=== PATIENT | male | born 1990 | race Caucasian/White ===

== ENCOUNTER 2017-06-19 01:41 | Inpatient (IN) | payer OTHER ==
--- NOTE | 2017-06-19 02:05 | HP ---
COWS - Scale Resting Pulse: 0= [place] 80 or Below Sweatin=Flushed/Facial Moisture Restless Observation: 5= Unable to Sit Still Pupil Size: 1= Pupils >than Normal Bone or Joint Aches: 4=Acute Joint/Muscle Pain Runny Nose/ Eye Tearin= Nasal Congestion GI Upset > 30mins: 0= None Tremor Observation: 2= Slight Tremor Visible Yawning Observation: 0= None Anxiety or Irritability: 2=Irritable/Anxious Goose Flesh Skin: 0=Smooth Skin COWS Score: 17 CIWA Score - CIWA Score Nausea/Vomitin Muscle Tremors: 3 Anxiety: 3 Agitation: 3 Paroxysmal Sweats: 1-Minimal Palms Moist Orientation: 0-Oriented Tacttile Disturbances: 0-None Auditory Disturbances: 0-None Visual Disturbances: 0-None Headache: 0-None Present CIWA-Ar Total Score: 13 Admission ROS S - HPI Chief Complaint: SEEKING DETOX FOR WITHDRAWAL SX'S FROM POLYSUBSTANCE ABUSE. Allergies/Adverse Reactions: Allergies Allergy/AdvReac Type Severity Reaction Status Date / Time No Known Allergies Allergy Verified 06/19/17 02:04 History of Present Illness: 26 Y.O. MALE WITH SEVEN YEAR H/O OF POLYSUBSTANCE DEPENDENCE ADMITTED TO DETOX FOR ALCOHOLISM, HEROIN, XANAX, DEPENDENCE. CLIENT REPORTS THIS BEING HIS FIRST TIME IN [facility]. REFERRED BY A [facility] RECOVERY OUTREACH PERSONNEL. DENIES ANY SIGNIFICANT PERIOD OF CLEAN TIME Exam Limitations: No Limitations - Ebola screening Have you traveled outside of the country in the last 21 days: No Have you had contact with anyone from an Ebola affected area: No Have you been sick,other than usual withdrawal symptoms: No - Review of Systems Constitutional: Chills, Loss of Appetite, Malaise, Night Sweats, Changes in sleep EENT: reports: Nose Congestion Respiratory: reports: No Symptoms reported Cardiac: reports: No Symptoms Reported GI: reports: Poor Appetite, Abdominal cramping : reports: No Symptoms Reported Musculoskeletal: reports: Back Pain Integumentary: reports: No Symptoms Reported Neuro: reports: No Symptoms reported Endocrine: reports: No Symptoms Reported Hematology: reports: No Symptoms Reported Psychiatric: reports: Anxious, Depressed Other Systems: Reviewed and Negative Patient History - Patient Medical History Hx Anemia: No Hx Asthma: No Hx Chronic Obstructive Pulmonary Disease (COPD): No Hx Cancer: No Hx Cardiac Disorders: No Hx Congestive Heart Failure: No Hx Hypertension: No Hx Hypercholesterolemia: No Hx Pacemaker: No HX Cerebrovascular Accident: No Hx Seizures: No Hx Dementia: No Hx Diabetes: No Hx Gastrointestinal Disorders: No Hx Liver Disease: No Hx Genitourinary Disorders: No Hx Sexually Transmitted Disorders: Yes (GONRRHEA, HPV TX'ED) Hx Renal Disease (ESRD): No Hx Thyroid Disease: No Hx Human Immunodeficiency Virus (HIV): No Hx Hepatitis C: No Hx Depression: Yes (NO TXMENT) Hx Suicide Attempt: No Hx Bipolar Disorder: No Hx Schizophrenia: No Other Medical History: ANXIETY - Patient Surgical History Past Surgical History: No - PPD History Previous Implant?: Yes Documented Results: Negative w/o proof Implanted On Prior [facility] Admission?: No PPD to be Administered?: Yes - Smoking Cessation Smoking history: Current every day smoker Have you smoked in the past 12 months: Yes Aproximately how many cigarettes per day: 10 Cigars Per Day: 0 Hx Chewing Tobacco Use: No Initiated information on smoking cessation: Yes 'Breaking Loose' booklet given: 06/19/17 - Substance & Tx. History Hx Alcohol Use: Yes Hx Substance Use: Yes Substance Use Type: Alcohol, Cocaine, Heroin, Marijuana, Opiates (OXY), Tranquilizers (XANAX) Hx Substance Use Treatment: No - Substances Abused HEROIN Route: Inhalation Frequency: Daily Amount used: 3 BAGS Age of first use: 19 Date of Last Use: 06/18/17 BEER Route: Oral Frequency: 3-6 times per week Amount used: 1-18 OZ Age of first use: 17 Date of Last Use: 06/17/17 XANAX Route: Oral Frequency: 1-3 times last 30 days Amount used: 6MG Age of first use: 21 Date of Last Use: 06/18/17 COCAINE Route: Inhalation Frequency: 3-6 times per week Amount used: $40 Age of first use: 23 Date of Last Use: 06/16/17 THC Route: Smoking Frequency: Daily Amount used: 1 GM Age of first use: 13 Date of Last Use: 06/18/17 PERCOCET Route: Oral Frequency: 1-3 times last 30 days Amount used: 30MG Age of first use: 19 Date of Last Use: 06/08/17 Family Disease History - Family Disease History Family History: Denies Admission Physical Exam [facility] - Physical General Appearance: Yes: Appropriately Dressed, Tremorous, Anxious HEENTM: Yes: EOMI, Normocephalic, Pharynx Normal, Nasal Congestion Respiratory: Yes: Chest Non-Tender, Lungs Clear, Normal Breath Sounds, No Respiratory Distress, No Accessory Muscle Use Neck: Yes: No masses,lesions,Nodules, Supple, Trachea in good position Breast: Yes: Breast Exam Deferred Cardiology: Yes: Regular Rhythm, Regular Rate, S1, S2 Abdominal: Yes: Normal Bowel Sounds, Non Tender, Soft Genitourinary: Yes: Within Normal Limits Back: Yes: Normal Inspection Musculoskeletal: Yes: full range of Motion, Gait Steady Extremities: Yes: Normal Range of Motion, Non-Tender, Tremors Neurological: Yes: Fully Oriented, Alert, Motor Strength 5/5 Integumentary: Yes: Warm, Other (NEEDLE STICK NOTED TO L AC) Lymphatic: Yes: Within Normal Limits - Diagnostic (1) Cannabis dependence, uncomplicated Current Visit: Yes Status: Chronic (2) Cocaine dependence, uncomplicated Current Visit: Yes Status: Chronic (3) Sedative, hypnotic or anxiolytic dependence with withdrawal, uncomplicated Current Visit: Yes Status: Chronic (4) Opioid dependence with withdrawal Current Visit: Yes Status: Chronic (5) Alcohol dependence with uncomplicated withdrawal Current Visit: Yes Status: Chronic (6) Nicotine dependence Current Visit: Yes Status: Chronic Qualifiers: Nicotine product type: cigarettes Substance use status: uncomplicated Qualified Code(s): F17.210 - Nicotine dependence, cigarettes, uncomplicated; F17.210 - Nicotine dependence, cigarettes, uncomplicated Cleared for Admission [facility] - Detox or Rehab [facility] Level of Care: Medically Managed Detox Regimen/Protocol: Methadone/Valium [facility] Breath Alcohol Content Breath Alcohol Content: 0 Vital Signs - Vital Signs Vital Signs Refused: No Temperature: 97.6 F Temperature Source: Oral Pulse Rate: 69 Respiratory Rate: 20 Blood Pressure: 125/69 BP Location: Left Arm Blood Pressure Position: Sitting - Height Height: 5 ft 4 in - Weight Weight: 70.76 kg Weight Measurement Method: Standing Scale Body Mass Index (BMI): 26.7 Urine Drug Screen - Test Device Lot Number: [id number] Expiration Date: 02/14/19 - Control Is Test Valid: Yes - Results Drug Screen Negative: No Urine Drug Screen Results: THC-Marijuana, COLE-Cocaine, OPI-Opiates, BZO- Benzodiazepines, OXY-Oxycodone
[2017-06-19 02:59] VITALS: BMI 26.7
[2017-06-19] MEDS ORDERED: METHADONE HCL 10 MG TABLET (FOR DETOX USE ONLY) PO ONE ×3 (03:03→23:00)
[2017-06-19] MEDS ORDERED: LOPERAMIDE HCL 2 MG CAPSULE PO PRN (03:03)
[2017-06-19] MEDS ORDERED: ACETAMINOPHEN 325 MG TABLET (FP) PO PRN (03:03)
[2017-06-19] MEDS ORDERED: MENTHOL/PHENOL 1 EACH UD MM PRN (03:03)
[2017-06-19] MEDS ORDERED: diazePAM 5 MG TABLET PO ONE (03:03)
[2017-06-19] MEDS ORDERED: NICOTINE POLACRILEX 2 MG GUM BC PRN (03:03)
[2017-06-19] MEDS ORDERED: MAGNESIUM CITRATE 300 ML BOTTLE PO PRN (03:03)
[2017-06-19] MEDS ORDERED: MAGNESIUM HYDROX 2400MG/30ML ORAL SUSPENSION 30 ML CUP PO PRN (03:03)
[2017-06-19] MEDS ORDERED: P-EPHED 60MG/TRIPROLIDI 2.5MG TABLET PO PRN (03:03)
[2017-06-19] MEDS ORDERED: MAG HYDROX/AL HYDROX/SIMETH 30 ML UNIT-DOSE CUP PO PRN (03:03)
[2017-06-19] MEDS ORDERED: guaiFENesin/D-METHORPHAN HB 10 ML UNIT-DOSE CUPS PO PRN (03:03)
[2017-06-19] MEDS: diazePAM 5 MG TABLET PO SCH ×3 (07:43→22:50)
[2017-06-19] MEDS: diazePAM 5 MG TABLET PO PRN ×2 (09:15→18:03)
[2017-06-19 09:48] LABS: MCH 27.6 pg (25.7-33.7); MCHC 33.5 g/dl (32.0-35.9); MEAN CELL VOLUME 82.4 fl (80-96); MEAN PLT VOLUME 9.7 fl (7.5-11.1); PLATELET COUNT 140 K/MM3 (134-434); RDW 14.5 % (11.9-15.9); WHITE BLOOD COUNT 7.8 K/mm3 (4.0-10.0)
[2017-06-19 09:50] LABS: ALBUMIN 3.5 g/dl (3.4-5.0)
[2017-06-19 09:54] LABS: ALK PHOS 86 U/L (45-117); ANION GAP 5 (8-16); BILIRUBIN,TOTAL 0.6 mg/dL (0.2-1.0); CALCIUM 8.8 mg/dL (8.5-10.1); CO2 33 mmol/L (21-32); CREATININE 0.9 mg/dL (0.7-1.3); GLUCOSE,RANDOM 86 mg/dL (74-106); SGOT/AST 15 U/L (15-37); SGPT/ALT 19 U/L (12-78); TOT PROT 6.5 g/dl (6.4-8.2)
[2017-06-19] MEDS: NICOTINE 14 MG/24 HOURS TOPICAL PATCH TD SCH (10:46)
[2017-06-19] MEDS: PRENATAL VITAMINS W/ FOLIC ACID TABLET (FP) PO SCH (10:47)
--- NOTE | 2017-06-19 12:25 | PN ---
[facility] CIWA - CIWA Score Nausea/Vomitin-No Nausea/No Vomiting Muscle Tremors: 2 Anxiety: 4-Mod. Anxious/Guarded Agitation: 2 Paroxysmal Sweats: 3 Orientation: 0-Oriented Tacttile Disturbances: 3-Moderate Itch/Numb/Burn Auditory Disturbances: 2-Mild Harshness/Frighten Visual Disturbances: 0-None Headache: 0-None Present CIWA-Ar Total Score: 16 [facility] COWS - Scale Resting Pulse: 0= [place] 80 or Below Sweatin= Chills/Flushing Restless Observation: 1= Difficult to Sit Still Pupil Size: 0= Normal to Room Light Bone or Joint Aches: 2= Severe Diffuse Aches Runny Nose/ Eye Tearin= Nasal Congestion GI Upset > 30mins: 1= Stomach Cramp Tremor Observation of Outstretched Hands: 2= Slight Tremor Visible Yawning Observation: 1= 1-2x During Session Anxiety or Irritability: 2=Irritable/Anxious Goose Flesh Skin: 3=Piloerection COWS Score: 14 S Progress Note (SOAP) Subjective: Fatigue, Sweating, Body Aches. Objective: PT. A & O X 3. NO ACUTE DISTRESS. 06/19/17 12:26 Vital Signs Temperature 97.1 F L 06/19/17 09:25 Pulse Rate 58 L 06/19/17 09:25 Respiratory Rate 18 06/19/17 09:25 Blood Pressure 109/72 06/19/17 09:25 O2 Sat by Pulse Oximetry (%) Laboratory Tests 06/19/17 06/19/17 06/19/17 08:00 08:00 08:00 WBC 7.8 RBC 4.86 Hgb 13.4 Hct 40.1 MCV 82.4 MCH 27.6 MCHC 33.5 RDW 14.5 Plt Count 140 MPV 9.7 Sodium 140 Potassium 4.2 Chloride 102 Carbon Dioxide 33 H Anion Gap 5 L BUN 16 Creatinine 0.9 Creat Clearance w eGFR > 60 Random Glucose 86 Calcium 8.8 Total Bilirubin 0.6 AST 15 ALT 19 Alkaline Phosphatase 86 Total Protein 6.5 Albumin 3.5 RPR Titer Nonreactive LABS NOTED. HCV AB, UA RESULTS PENDING. 06/19/17 12:27 Assessment: 06/19/17 12:27 WITHDRAWAL SYMPTOMS. Plan: CONTINUE DETOX. INCREASE DAILY PO FLUID INTAKE.
[2017-06-19 17:05] LABS: URINE APPEARANCE CLEAR; URINE BILIRUBIN NEGATIVE (NEGATIVE); URINE BLOOD NEGATIVE (NEGATIVE); URINE COLOR YELLOW; URINE GLUCOSE (UA) NEGATIVE (NEGATIVE); URINE KETONE NEGATIVE (NEGATIVE); URINE LEUK ESTERASE NEGATIVE (NEGATIVE); URINE NITRITE NEGATIVE (NEGATIVE); URINE PROTEIN NEGATIVE (NEGATIVE); URINE UROBILINOGEN NEGATIVE mg/dL (0.2-1.0)
--- NOTE | 2017-06-19 17:06 | CONSULT ---
[facility] Psychiatric Consult - Data Date of interview: 06/19/17 Admission source: [facility] Identifying data: First admission to [facility] for this 26 y/o male seeking detox treatment on for heroin,cocaine,alcohol,marihuana and xanax dependence.Patient is single without children,domiciled,part-time employed and supported by relatives. Substance Abuse History: - Smoking Cessation. Smoking history: Current every day smoker. Have you smoked in the past 12 months: Yes. Aproximately how many cigarettes per day: 10. Cigars Per Day: 0. Hx Chewing Tobacco Use: No. Initiated information on smoking cessation: Yes. 'Breaking Loose' booklet given : 06/19/17. - Substance & Tx. History. Hx Alcohol Use: Yes. Hx Substance Use : Yes. Substance Use Type: Alcohol, Cocaine, Heroin, Marijuana, Opiates (OXY), Tranquilizers (XANAX). Hx Substance Use Treatment: No. - Substances Abused. * * HEROIN. Route: Inhalation. Frequency: Daily. Amount used: 3 BAGS. Age of first use: 19. Date of Last Use: 06/18/17. BEER. Route: Oral. Frequency: 3-6 times per week. Amount used: 1-18 OZ. Age of first use: 17. Date of Last Use: 06/17/17. XANAX. Route: Oral. Frequency: 1-3 times last 30 days. Amount used: 6MG. Age of first use: 21. Date of Last Use: 06/18/17. COCAINE. Route: Inhalation. Frequency: 3-6 times per week. Amount used: $40. Age of first use: 23. Date of Last Use: 06/16/17. THC. Route: Smoking. Frequency: Daily. Amount used: 1 GM. Age of first use: 13. Date of Last Use: 06/18/17. PERCOCET. Route: Oral. Frequency: 1-3 times last 30 days. Amount used: 30MG. Age of first use: 19. Date of Last Use: 06/08/17. Family Disease History Medical History: History of treatment for gonorrhea and herpes genitalis. Psychiatric History: Patient denies. Physical/Sexual Abuse/Trauma History: Patient denies. Additional Comment: Urine Drug Screen Results: THC-Marijuana, COLE-Cocaine, OPI- Opiates, BZO-Benzodiazepines, OXY-Oxycodone.Noted. Mental Status Exam - Mental Status Exam Alert and Oriented to: Time, Place, Person Cognitive Function: Good Patient Appearance: Well Groomed Mood: Hopeful, Euthymic Affect: Appropriate, Normal Range Patient Behavior: Fatigued, Appropriate, Cooperative Speech Pattern: Clear Voice Loudness: Normal Thought Process: Intact, Goal Oriented Thought Disorder: Not Present Hallucinations: Denies Suicidal Ideation: Denies Homicidal Ideation: Denies Insight/Judgement: Poor Sleep: Poorly, Difficulty falling asleep Appetite: Good Muscle strength/Tone: Normal Gait/Station: Normal Psychiatric Findings - Problem List ([place] 1, 2,3) (1) Opioid dependence with withdrawal Current Visit: Yes Status: Acute (2) Sedative, hypnotic or anxiolytic dependence with withdrawal, uncomplicated Current Visit: Yes Status: Acute (3) Alcohol dependence with uncomplicated withdrawal Current Visit: Yes Status: Acute (4) Cannabis dependence, uncomplicated Current Visit: Yes Status: Acute (5) Cocaine dependence, uncomplicated Current Visit: Yes Status: Acute (6) Nicotine dependence Current Visit: Yes Status: Acute Qualifiers: Nicotine product type: cigarettes Substance use status: uncomplicated Qualified Code(s): F17.210 - Nicotine dependence, cigarettes, uncomplicated; F17.210 - Nicotine dependence, cigarettes, uncomplicated (7) Substance induced mood disorder Current Visit: Yes Status: Acute (8) Insomnia Current Visit: Yes Status: Acute - Initial Treatment Plan Initial Treatment Plan: Psychoeducation.Detoxification.Reassurance and support.Insomnia is addresssed with benadryl 50 mg po hs.Side effects/benefits discussed with patient.Agrees with proposed care.Observation.
--- NOTE | 2017-06-19 20:37 | EKG ---
Test Reason : Blood Pressure : / mmHG Vent. Rate : 060 BPM Atrial Rate : 060 BPM P-R Int : 176 ms QRS Dur : 094 ms QT Int : 396 ms P-R-T Axes : 038 080 050 degrees QTc Int : 396 ms NORMAL SINUS RHYTHM ATRIAL ABNORMALITY NO PREVIOUS ECGS AVAILABLE REPEAT EKG IF CLINICALLY INDICATED Confirmed by ISAIAS SOOD MD ([id number]) on 06/19/2017 8:36:56 PM Referred By: Confirmed By:ISAIAS SOOD MD
[2017-06-19] MEDS: THIAMINE HCL 100 MG TABLET (FP) PO SCH (22:50)
[2017-06-19] MEDS: diphenhydrAMINE HCL 50 MG CAPSULE PO PRN (22:50)
[2017-06-19] MEDS: IBUPROFEN 400 MG TABLET (FP) PO PRN (22:51)
[2017-06-20] MEDS: diazePAM 5 MG TABLET PO SCH ×3 (05:41→22:42)
[2017-06-20] MEDS ORDERED: METHADONE HCL 10 MG TABLET (FOR DETOX USE ONLY) PO SCH (10:00)
[2017-06-20] MEDS: PRENATAL VITAMINS W/ FOLIC ACID TABLET (FP) PO SCH (10:54)
[2017-06-20] MEDS: diazePAM 5 MG TABLET PO PRN ×2 (10:55→17:31)
[2017-06-20] MEDS: NICOTINE 14 MG/24 HOURS TOPICAL PATCH TD SCH (10:56)
--- NOTE | 2017-06-20 13:34 | PN ---
[facility] CIWA - CIWA Score Nausea/Vomitin-No Nausea/No Vomiting Muscle Tremors: None Anxiety: 4-Mod. Anxious/Guarded Agitation: 3 Paroxysmal Sweats: 3 Orientation: 0-Oriented Tacttile Disturbances: 2-Mild Itch/Numbness/Burn Auditory Disturbances: 2-Mild Harshness/Frighten Visual Disturbances: 0-None Headache: 4-Moderately Severe CIWA-Ar Total Score: 18 [facility] COWS - Scale Resting Pulse: 1= [place] 81-100 Sweatin= Chills/Flushing Restless Observation: 1= Difficult to Sit Still Pupil Size: 0= Normal to Room Light Bone or Joint Aches: 2= Severe Diffuse Aches Runny Nose/ Eye Tearin= Nasal Congestion GI Upset > 30mins: 1= Stomach Cramp Tremor Observation of Outstretched Hands: 0= None Yawning Observation: 2= >3x During Session Anxiety or Irritability: 2=Irritable/Anxious Goose Flesh Skin: 0=Smooth Skin COWS Score: 11 [facility] Progress Note (SOAP) Subjective: Sweating, Anxious, Interrupted sleep, H/A, Body Aches, Stomach Cramping. Objective: PT. A & O X 3, OBSERVED AMBULATING ON UNIT. NO ACUTE DISTRESS. PT. DENIES CHEST PAIN. 06/20/17 13:32 Vital Signs Temperature 97.4 F L 06/20/17 09:48 Pulse Rate 93 H 06/20/17 09:48 Respiratory Rate 20 06/20/17 09:48 Blood Pressure 135/72 06/20/17 09:48 O2 Sat by Pulse Oximetry (%) Laboratory Tests 06/19/17 06/19/17 06/19/17 08:00 08:00 08:00 WBC 7.8 RBC 4.86 Hgb 13.4 Hct 40.1 MCV 82.4 MCH 27.6 MCHC 33.5 RDW 14.5 Plt Count 140 MPV 9.7 Sodium 140 Potassium 4.2 Chloride 102 Carbon Dioxide 33 H Anion Gap 5 L BUN 16 Creatinine 0.9 Creat Clearance w eGFR > 60 Random Glucose 86 Calcium 8.8 Total Bilirubin 0.6 AST 15 ALT 19 Alkaline Phosphatase 86 Total Protein 6.5 Albumin 3.5 Urine Color Urine Appearance Urine pH Ur Specific [place] Urine Protein Urine Glucose (UA) Urine Ketones Urine Blood Urine Nitrite Urine Bilirubin Urine Urobilinogen RPR Titer Hepatitis C Antibody 0.1 06/19/17 06/19/17 08:00 15:00 WBC RBC Hgb Hct MCV MCH MCHC RDW Plt Count MPV Sodium Potassium Chloride Carbon Dioxide Anion Gap BUN Creatinine Creat Clearance w eGFR Random Glucose Calcium Total Bilirubin AST ALT Alkaline Phosphatase Total Protein Albumin Urine Color Yellow Urine Appearance Clear Urine pH 6.0 Ur Specific [place] 1.020 Urine Protein Negative Urine Glucose (UA) Negative Urine Ketones Negative Urine Blood Negative Urine Nitrite Negative Urine Bilirubin Negative Urine Urobilinogen Negative RPR Titer Nonreactive Hepatitis C Antibody LABS NOTED. Assessment: 06/20/17 13:32 WITHDRAWAL SYMPTOMS. Plan: CONTINUE DETOX. PRN FLEXERIL PO FOR BODY ACHES / MUSCLE SPASMS. INCREASE DAILY PO FLUID INTAKE.
[2017-06-20] MEDS: THIAMINE HCL 100 MG TABLET (FP) PO SCH (22:42)
[2017-06-20] MEDS: diphenhydrAMINE HCL 50 MG CAPSULE PO PRN (22:45)
[2017-06-21] MEDS: diazePAM 5 MG TABLET PO PRN ×5 (01:50→18:34)
[2017-06-21] MEDS: diphenhydrAMINE HCL 50 MG CAPSULE PO PRN (01:51)
[2017-06-21] MEDS: diazePAM 5 MG TABLET PO SCH ×2 (09:05→22:40)
[2017-06-21] MEDS: METHADONE HCL 5 MG TABLET (FOR DETOX USE ONLY) PO SCH (10:40)
[2017-06-21] MEDS: NICOTINE 14 MG/24 HOURS TOPICAL PATCH TD SCH (10:40)
[2017-06-21] MEDS: PRENATAL VITAMINS W/ FOLIC ACID TABLET (FP) PO SCH (10:41)
[2017-06-21] MEDS: IBUPROFEN 400 MG TABLET (FP) PO PRN ×2 (10:41→18:36)
--- NOTE | 2017-06-21 14:15 | PN ---
[facility] Progress Note (SOAP) Subjective: Interrupted sleep, Constipation, Body Aches, H/A, Sweating. Objective: PT. A & O X 3, OBSERVED AMBULATING ON UNIT. NO ACUTE DISTRESS. PT. DENIES CHEST PAIN. 06/21/17 14:13 Vital Signs Temperature 95.9 F L 06/21/17 13:14 Pulse Rate 66 06/21/17 13:14 Respiratory Rate 18 06/21/17 13:14 Blood Pressure 125/85 06/21/17 13:14 O2 Sat by Pulse Oximetry (%) Laboratory Tests 06/19/17 06/19/17 06/19/17 08:00 08:00 08:00 WBC 7.8 RBC 4.86 Hgb 13.4 Hct 40.1 MCV 82.4 MCH 27.6 MCHC 33.5 RDW 14.5 Plt Count 140 MPV 9.7 Sodium 140 Potassium 4.2 Chloride 102 Carbon Dioxide 33 H Anion Gap 5 L BUN 16 Creatinine 0.9 Creat Clearance w eGFR > 60 Random Glucose 86 Calcium 8.8 Total Bilirubin 0.6 AST 15 ALT 19 Alkaline Phosphatase 86 Total Protein 6.5 Albumin 3.5 Urine Color Urine Appearance Urine pH Ur Specific [place] Urine Protein Urine Glucose (UA) Urine Ketones Urine Blood Urine Nitrite Urine Bilirubin Urine Urobilinogen RPR Titer Hepatitis C Antibody 0.1 06/19/17 06/19/17 08:00 15:00 WBC RBC Hgb Hct MCV MCH MCHC RDW Plt Count MPV Sodium Potassium Chloride Carbon Dioxide Anion Gap BUN Creatinine Creat Clearance w eGFR Random Glucose Calcium Total Bilirubin AST ALT Alkaline Phosphatase Total Protein Albumin Urine Color Yellow Urine Appearance Clear Urine pH 6.0 Ur Specific [place] 1.020 Urine Protein Negative Urine Glucose (UA) Negative Urine Ketones Negative Urine Blood Negative Urine Nitrite Negative Urine Bilirubin Negative Urine Urobilinogen Negative RPR Titer Nonreactive Hepatitis C Antibody LABS NOTED. Assessment: 06/21/17 14:14 WITHDRAWAL SYMPTOMS. Plan: CONTINUE DETOX.
[2017-06-21] MEDS: THIAMINE HCL 100 MG TABLET (FP) PO SCH (22:41)
[2017-06-21] MEDS: hydrOXYzine PAMOATE 50 MG CAPSULE (FP) PO PRN (22:43)
[2017-06-22] MEDS: diazePAM 5 MG TABLET PO PRN (01:38)
[2017-06-22] MEDS: hydrOXYzine PAMOATE 50 MG CAPSULE (FP) PO PRN ×2 (06:08→22:39)
[2017-06-22] MEDS: NICOTINE 14 MG/24 HOURS TOPICAL PATCH TD SCH (10:33)
[2017-06-22] MEDS: METHADONE HCL 5 MG TABLET (FOR DETOX USE ONLY) PO SCH (10:33)
[2017-06-22] MEDS: diazePAM 5 MG TABLET PO SCH ×2 (10:33→22:37)
[2017-06-22] MEDS: PRENATAL VITAMINS W/ FOLIC ACID TABLET (FP) PO SCH (10:33)
--- NOTE | 2017-06-22 13:27 | PN ---
[facility] Progress Note (SOAP) Subjective: Sweating, Tremors. Objective: PT. A & O X 3, OBSERVED AMBULATING ON UNIT. NO ACUTE DISTRESS. 06/22/17 13:25 Vital Signs Temperature 97.1 F L 06/22/17 10:34 Pulse Rate 76 06/22/17 10:34 Respiratory Rate 18 06/22/17 10:34 Blood Pressure 126/71 06/22/17 10:34 O2 Sat by Pulse Oximetry (%) Laboratory Tests 06/19/17 06/19/17 06/19/17 08:00 08:00 08:00 WBC 7.8 RBC 4.86 Hgb 13.4 Hct 40.1 MCV 82.4 MCH 27.6 MCHC 33.5 RDW 14.5 Plt Count 140 MPV 9.7 Sodium 140 Potassium 4.2 Chloride 102 Carbon Dioxide 33 H Anion Gap 5 L BUN 16 Creatinine 0.9 Creat Clearance w eGFR > 60 Random Glucose 86 Calcium 8.8 Total Bilirubin 0.6 AST 15 ALT 19 Alkaline Phosphatase 86 Total Protein 6.5 Albumin 3.5 Urine Color Urine Appearance Urine pH Ur Specific [place] Urine Protein Urine Glucose (UA) Urine Ketones Urine Blood Urine Nitrite Urine Bilirubin Urine Urobilinogen RPR Titer Hepatitis C Antibody 0.1 06/19/17 06/19/17 08:00 15:00 WBC RBC Hgb Hct MCV MCH MCHC RDW Plt Count MPV Sodium Potassium Chloride Carbon Dioxide Anion Gap BUN Creatinine Creat Clearance w eGFR Random Glucose Calcium Total Bilirubin AST ALT Alkaline Phosphatase Total Protein Albumin Urine Color Yellow Urine Appearance Clear Urine pH 6.0 Ur Specific [place] 1.020 Urine Protein Negative Urine Glucose (UA) Negative Urine Ketones Negative Urine Blood Negative Urine Nitrite Negative Urine Bilirubin Negative Urine Urobilinogen Negative RPR Titer Nonreactive Hepatitis C Antibody LABS NOTED. Assessment: 06/22/17 13:25 WITHDRAWAL SYMPTOMS. Plan: CONTINUE DETOX.
[2017-06-22] MEDS: THIAMINE HCL 100 MG TABLET (FP) PO SCH (22:37)
[2017-06-23] MEDS ORDERED: diazePAM 5 MG TABLET PO SCH (10:00)
[2017-06-23] MEDS ORDERED: METHADONE HCL 10 MG TABLET (FOR DETOX USE ONLY) PO SCH (10:00)
[2017-06-23 10:25] VITALS: BP 112/71; PULSE 86; TEMP 98.1
--- NOTE | 2017-06-23 22:00 | DS ---
[facility] Detox Discharge Summary Admission Date: 06/19/17 Discharge Date: 06/23/17 - History Present History: Alcohol Dependence, Cannabis Dependence, Cocaine Dependence, Opioid Dependence, Sedative Dependence Additional Comments: PATIENT RETURNING HOME AT THIS TIME; WILL PURSUE REHAB ADMISSION AT LATER DATE WHEN HIS INSURANCE IS ACTIVATED. PATIENT WAS DISCHARGED FROM DETOX UNIT IN STABLE MEDICAL CONDITION. Pertinent Past History: Depression, Nicotine Dependence, Insomnia. - Physical Exam Results Vital Signs: Vital Signs Temperature 98.1 F 06/23/17 10:24 Pulse Rate 86 06/23/17 10:24 Respiratory Rate 18 06/23/17 10:24 Blood Pressure 112/71 06/23/17 10:24 O2 Sat by Pulse Oximetry (%) Pertinent Admission Physical Exam Findings: WITHDRAWAL SYMPTOMS. Laboratory Tests 06/19/17 06/19/17 06/19/17 08:00 08:00 08:00 WBC 7.8 RBC 4.86 Hgb 13.4 Hct 40.1 MCV 82.4 MCH 27.6 MCHC 33.5 RDW 14.5 Plt Count 140 MPV 9.7 Sodium 140 Potassium 4.2 Chloride 102 Carbon Dioxide 33 H Anion Gap 5 L BUN 16 Creatinine 0.9 Creat Clearance w eGFR > 60 Random Glucose 86 Calcium 8.8 Total Bilirubin 0.6 AST 15 ALT 19 Alkaline Phosphatase 86 Total Protein 6.5 Albumin 3.5 Urine Color Urine Appearance Urine pH Ur Specific [place] Urine Protein Urine Glucose (UA) Urine Ketones Urine Blood Urine Nitrite Urine Bilirubin Urine Urobilinogen RPR Titer Hepatitis C Antibody 0.1 06/19/17 06/19/17 08:00 15:00 WBC RBC Hgb Hct MCV MCH MCHC RDW Plt Count MPV Sodium Potassium Chloride Carbon Dioxide Anion Gap BUN Creatinine Creat Clearance w eGFR Random Glucose Calcium Total Bilirubin AST ALT Alkaline Phosphatase Total Protein Albumin Urine Color Yellow Urine Appearance Clear Urine pH 6.0 Ur Specific [place] 1.020 Urine Protein Negative Urine Glucose (UA) Negative Urine Ketones Negative Urine Blood Negative Urine Nitrite Negative Urine Bilirubin Negative Urine Urobilinogen Negative RPR Titer Nonreactive Hepatitis C Antibody LABS NOTED. - Treatment Hospital Course: Detox Protocol Followed, Detoxed Safely, Responded well, Discharged Condition Good Patient has Accepted a Rehab Referral to: PT GOING HOME; WILL PURSUE REHAB ADMISSION AFTER INSURANCE IS ACTIVATED. - Medication Discharge Medications: Ambulatory Orders NK [No Known Home Medication] 06/19/17 - Diagnosis (1) Alcohol dependence with uncomplicated withdrawal Status: Acute (2) Cannabis dependence, uncomplicated Status: Acute (3) Cocaine dependence, uncomplicated Status: Acute (4) Insomnia Status: Acute Qualifiers: Insomnia type: unspecified Qualified Code(s): G47.00 - Insomnia, unspecified; G47.00 - Insomnia, unspecified (5) Nicotine dependence Status: Chronic Qualifiers: Nicotine product type: cigarettes Substance use status: uncomplicated Qualified Code(s): F17.210 - Nicotine dependence, cigarettes, uncomplicated; F17.210 - Nicotine dependence, cigarettes, uncomplicated (6) Opioid dependence with withdrawal Status: Acute (7) Sedative, hypnotic or anxiolytic dependence with withdrawal, uncomplicated Status: Acute (8) Substance induced mood disorder Status: Acute - AMA Did Patient Leave Against Medical Advice: No
[2017-06-24] MEDS ORDERED: METHADONE HCL 5 MG TABLET (FOR DETOX USE ONLY) PO SCH (06:00)
== END 2017-06-23 09:10 | disposition home or self-care (01) | DRG 773 ==
LOC: YASAS 01:41 → Y3N 02:51
PROVIDERS: ADMIT Internal Medicine; ATTEND Internal Medicine
PROC: HZ2ZZZZ Detoxification Services for Substance Abuse Treatment (ICD-10-PCS; principal; 2017-06-19)
DX: F11.23 Opioid dependence with withdrawal (principal); F13.230 Sedative, hypnotic or anxiolytic dependence with withdrawal, uncomplicated; F10.230 Alcohol dependence with withdrawal, uncomplicated; F14.20 Cocaine dependence, uncomplicated; F12.20 Cannabis dependence, uncomplicated; F17.213 Nicotine dependence, cigarettes, with withdrawal; F19.24 Other psychoactive substance dependence with psychoactive substance-induced mood disorder; G47.00 Insomnia, unspecified; Z87.438 Personal history of other diseases of male genital organs
CPT/HCPCS: 36415; 80053; 81003; 85027; 86593; 86803; 93005; 93010